=== PATIENT | female | born 1985 | race Caucasian/White ===

== ENCOUNTER 2017-04-18 18:17 | Emergency (ER) | payer OTHER ==
[~2017-04-18] VITALS: Ht 157.5 cm; Wt 79.1 kg
[~2017-04-18 18:17] MED LIST: ASCA500 PO; CYAN10005 PO; MULT-506 PO
[2017-04-18 18:24] VITALS: BP 141/87; PULSE 100; TEMP 36.6; O2SAT 97; Ht 157.5 cm; Wt 79.1 kg
[2017-04-18] MEDS ORDERED: CETI10TA10 PO (18:57)
[2017-04-18] MEDS ORDERED: PEDICHW44 PO (18:57)
[2017-04-18] MEDS ORDERED: CYAN500T13 PO (18:57)
[2017-04-18] MEDS ORDERED: ASCO500T16 PO (18:57)
--- NOTE | 2017-04-18 19:09 | DIAGNOSTIC IMAGING REPORT ---
SACRUM COCCYX MIN 2 VIEWS CLINICAL HISTORY: sacral and coccyx pain COMPARISON STUDY: None FINDINGS: Negative study IMPRESSION: No acute process The above report was generated using voice recognition software. It may contain grammatical, syntax or spelling errors. Electronically signed by: Rober Walton M.D. 04/18/2017 7:08 PM Dictated Date/Time: 04/18/2017 7:06 PM
--- NOTE | 2017-04-18 19:29 | EMERGENCY ROOM VISIT NOTE ---
ED Visit Note First contact with patient: 18:28 I have seen and examined this patient with Judson Duran and generally agree with the treatment plan as discussed. Current/Historical Medications Scheduled Ascorbic Acid (Ascorbic Acid), 1,000 MG PO DAILY Cetirizine Hcl (Zyrtec), 10 MG PO DAILY Cyanocobalamin (Vitamin B12 500MCG), 1,000 MCG PO DAILY Pediatric Multiple Vitamins W/ (Flintstones Plus Iron), 2 TABS PO DAILY Allergies Coded Allergies: Dextromethorphan (Verified Allergy, Intermediate, Rash, 04/18/17) Ethanol (Verified Allergy, Intermediate, Rash, 04/18/17) Pseudoephedrine (Verified Allergy, Intermediate, Rash, 04/18/17) Morphine (Unverified Allergy, Mild, 12/31/11) Prednisone (Verified Adverse Reaction, Severe, Swelling, 04/18/17) Vital Signs Date Time Temp Pulse Resp B/P (MAP) Pulse Ox O2 Delivery O2 Flow Rate FiO2 04/18/17 18:24 36.6 100 20 141/87 97 Room Air Departure Information Referrals Zeina Coy MD (PCP) Patient Instructions [facility]
[2017-04-18] MEDS ORDERED: HYDR-5688 PO (19:35)
--- NOTE | 2017-04-21 14:00 | EMERGENCY ROOM VISIT NOTE ---
ED Visit Note First contact with patient: 18:28 Chief Complaint: Lower back pain. History of Present Illness: Ms. Samaniego is a 31-year-old white female who ambulates into the ED accompanied by her mother complaining of sacrum and coccyx pain. Historically patient denies any previous significant injuries or surgeries to the lumbar, sacrum or coccyx area. She does report a few weeks ago she was having pain at work while flexion of the lumbar spine over but that has subsequently resolved. Patient reports approximately 12 hours ago she was undressing to take a shower and was bending at the waist. She reports an acute onset of sacrum and coccyx pain. Since that time her pain has been constant but has waxed and waned in intensity. She describes her pain as a sharp sensation. She rates her discomfort 9/10. Her pain is nonradiating. Her pain worsens with palpation, when she is sitting on her buttocks and flexion of the lumbar/sacral spine. She has not identified any alleviating factors related to the pain. She has not taken any medications for pain prior to arrival at the hospital. She denies any associated fevers, chills, sweats, skin eruptions, skin color changes , abdominal pain, nausea, vomiting, diarrhea, constipation, black/tarry stools, bloody stools, vaginal bleeding, vaginal discharge, urinary symptoms, hematuria , lower extremity weakness/numbness/tingling. Review of Systems: As noted above in history of present illness. 8 body systems were reviewed and found to be negative as noted above. Past Medical History: Kidney cyst, asthma, learning disabilities, status post gastric bypass. Current Medications: Multivitamins, Zyrtec. Allergies to Medications: Morphine, prednisone, pseudoephedrine, ethanol, dextromethorphan. Social History: Patient is currently employed; she lives with her mom and feels safe in her home environment; she denies tobacco use and admits to alcohol use. Physical Examination: Vital Signs: Date Time Temp Pulse Resp B/P (MAP) Pulse Ox O2 Delivery O2 Flow Rate FiO2 04/18/17 18:24 36.6 100 20 141/87 97 Room Air GENERAL: 31-year-old female in mild to moderate distress due to pain, nontoxic- appearing, afebrile and hemodynamically stable. NEUROLOGICAL: Awake, alert and oriented to person, place and time. Answering questions appropriately and following commands. Normal gait. Good hand eye coordination. No focal motor sensory deficits. SKIN: Warm, dry and pink. No soft tissue eruptions or trauma noted. HEENT: Atraumatic and normocephalic. BACK: No tenderness over the bony cervical, thoracic and lumbar spine. No tenderness throughout the cervical, thoracic and lumbar paraspinous musculature. No muscle spasm. No CVA tenderness. Moderate tenderness over the mid sacrum extending to the lower aspect of the coccyx. I do not appreciate any bony deformity. There is no swelling or erythema in this area. THORAX: Lungs sounds are clear to auscultation and equal bilaterally with symmetrical chest wall. ABDOMEN: Flat, soft and nontender. Positive bowel sounds in all quadrants. No guarding, rigidity or organomegaly. EXTREMITIES: Moves all extremities well on command and with purpose. All distal neurovascular statuses are intact and equal bilaterally. 2+ patellar and Achilles tendon reflexes intact and equal bilaterally. 4/5 muscle strength in flexion, extension, abduction and abduction of the hips, flexion and extension of the knees, plantar flexion and dorsiflexion of the ankles and flexion and extension of all toes. Able to distinguish light sensations through all dermatomes of the toes. Dorsalis pedis and anterior tibialis pulses are intact and equal bilaterally. Capillary refill is brisk. ED Course: Patient is assessed as noted above. Patient's medication list was reviewed. Patient was offered pain medication and refused. Sacrum/Coccyx X-Rays: Was read by myself and the radiologist showing no acute fractures or dislocations. Patient's case was reviewed with Dr. Abreu; we agreed on diagnostic approach, treatment, disposition and plan. Patient mother were educated about today's findings and instructed on her treatment plan; they verbalizes understanding and agreement with this plan. Clinical Impression: Coccydynia. Disposition: Patient discharged home in stable condition accompanied by her mother; prior to departure she was reassessed and subjectively reported she was feeling better and rated her discomfort 4/10. Plan: Comfort measures were discussed with the patient including rest, ice, donut pillow use and a sliding pain medication scale of ibuprofen, acetaminophen and [place]; appropriate narcotic precautions were discussed with the patient and patient's name was checked in the state database and no red flags were noted. Follow-up with family physician if no better in 3-4 days. Return to the ED for worsening/uncontrolled pain, swelling, redness, fevers or any new/concerning symptoms.
== END 2017-04-18 19:59 | disposition home or self-care (01) ==
LOC: C.EDB 18:17 → C.EDD 19:59
DX: M53.3 Sacrococcygeal disorders, not elsewhere classified (principal); N28.1 Cyst of kidney, acquired; J45.909 Unspecified asthma, uncomplicated; Z98.84 Bariatric surgery status

== ENCOUNTER → 2017-05-23 | Outpatient (CLI) | payer OTHER ==
[~2017-05-23] MED LIST changes: -ASCA500 PO; +ASCO500T16 PO; +CETI10TA10 PO; -CYAN10005 PO; +CYAN500T13 PO; +HYDR-5688 PO; -MULT-506 PO; +PEDICHW44 PO
[2017-05-23 16:35] LABS: BASO % 0.3 %; BASO ABS # 0.03 K/uL (0-0.2); COMPLETE YES; EOS % 0.7 %; HEMATOCRIT 39.2 % (37-47); IG% 0.3 %; LYMPH % 27.6 %; LYMPH ABS # 2.59 K/uL (1.2-3.4); MEAN CELL VOLUME 92.5 fL (80-100); MEAN CORPUSCULAR HEMOGLOBIN 31.6 pg (25-34); MEAN CORPUSCULAR HGB CONC 34.2 g/dl (32-36); MEAN PLATELET VOLUME 10.7 fL (7.4-10.4); MONO % 6.4 %; NEUT % 64.7 %; PLATELET COUNT 198 K/uL (130-400); RED BLOOD COUNT 4.24 M/uL (4.2-5.4); WHITE BLOOD COUNT 9.38 K/uL (4.8-10.8)
[2017-05-23 16:35] LABS: URINE APPEARANCE CLOUDY (CLEAR); URINE BILIRUBIN NEG (NEG); URINE COLOR DK YELLOW; URINE EPITHELIAL CELL AUTO >30 /lpf (0-5); URINE NITRITE NEG (NEG); URINE PH 5.5 (4.5-7.5); URINE SPECIFIC GRAVITY 1.021 (1.000-1.030); UROBILINOGEN NEG (NEG)
[2017-05-23 16:36] LABS: MANUAL MICROSCOPIC REQUIRED? NO; REVIEW REQ? YES
[2017-05-23 17:05] LABS: ALT/SGPT 21 U/L (12-78); AST/SGOT 19 U/L (15-37); BLOOD UREA NITROGEN 14 mg/dl (7-18); BUN/CREATININE RATIO 18.2 (10-20); CALCIUM 8.9 mg/dl (8.5-10.1); CARBON DIOXIDE 29 mmol/L (21-32); CHLORIDE 105 mmol/L (98-107); CREATININE 0.74 mg/dl (0.60-1.20); GLUCOSE 87 mg/dl (70-99); POTASSIUM 3.6 mmol/L (3.5-5.1); SODIUM 141 mmol/L (136-145)
[2017-05-23 17:15] LABS: ALB/GLOB RATIO 1.3 (0.9-2); ALKALINE PHOSPHATASE 51 U/L (45-117)
--- NOTE | 2017-06-05 17:37 | CODING QUERY MEDICAL NECESSITY ---
SUPPORTING DIAGNOSIS NEEDED A supporting diagnosis is required for the test/procedure performed on this patient in order for us to be reimbursed by the patient's insurance. Please provide a supporting diagnosis for the following test/procedure listed below next to the test name along with your signature. *If there is no additional diagnosis for this patient that would support the following test/procedure please document that below next to the test/procedure. Test(s)/Procedure(s) that require a supporting diagnosis: * VITAMIN B12 DIAGNOSIS: Provider Signature: Date: Thank you M[facility] [place] [employer] Once completed, please kindly fax back to [phone] For questions please call [phone]
== END | disposition home or self-care (01) ==
LOC: C.LAB1850 15:41
PROVIDERS: ATTEND Family Medicine Adult Medicine
DX: R11.0 Nausea (principal); R63.4 Abnormal weight loss; Z98.84 Bariatric surgery status

== ENCOUNTER 2018-01-12 09:41 | Emergency (ER) | payer OTHER ==
[~2018-01-12] VITALS: Ht 157.5 cm; Wt 76.1 kg
[~2018-01-12 09:41] MED LIST changes: -HYDR-5688 PO
[2018-01-12 09:45] VITALS: TEMP 36.7; Ht 157.5 cm; Wt 76.1 kg
[2018-01-12] MEDS ORDERED: ONDANSETRON INJ 2 MG/ML 2 ML VIAL IV STA (10:13)
[2018-01-12] MEDS ORDERED: KETOROLAC TROMETHAMINE 30 MG/ML VIAL IV STA (10:13)
[2018-01-12 11:09] LABS: BASO % 0.5 %; BASO ABS # 0.03 K/uL (0-0.2); EOS % 0.8 %; EOS ABS # 0.05 K/uL (0-0.5); HEMATOCRIT 39.6 % (37-47); HEMOGLOBIN 13.6 g/dL (12.0-16.0); IG# 0.01 K/uL (0.00-0.02); LYMPH % 30.9 %; MEAN CELL VOLUME 91.5 fL (80-100); MEAN CORPUSCULAR HEMOGLOBIN 31.4 pg (25-34); MEAN CORPUSCULAR HGB CONC 34.3 g/dl (32-36); MEAN PLATELET VOLUME 10.8 fL (7.4-10.4); MONO % 5.9 %; MONO ABS # 0.36 K/uL (0.11-0.59); NEUT % 61.7 %; NEUT ABS # 3.79 K/uL (1.4-6.5); PLATELET COUNT 191 K/uL (130-400); RED CELL DISTRIBUTION WIDTH CV 12.3 % (11.5-14.5); RED CELL DISTRIBUTION WIDTH SD 41.7 fL (36.4-46.3); WHITE BLOOD COUNT 6.14 K/uL (4.8-10.8)
[2018-01-12 11:31] LABS: ALBUMIN 3.9 gm/dl (3.4-5.0); ALT/SGPT 19 U/L (12-78); AST/SGOT 16 U/L (15-37); BLOOD UREA NITROGEN 15 mg/dl (7-18); CALCIUM 8.9 mg/dl (8.5-10.1); CARBON DIOXIDE 29 mmol/L (21-32); CREATININE 0.69 mg/dl (0.60-1.20); GLUCOSE 90 mg/dl (70-99); LIPASE 137 U/L (73-393); SODIUM 138 mmol/L (136-145)
[2018-01-12 11:33] LABS: ALKALINE PHOSPHATASE 53 U/L (45-117); TOTAL PROTEIN 6.7 gm/dl (6.4-8.2)
--- NOTE | 2018-01-12 11:34 | DIAGNOSTIC IMAGING REPORT ---
HAIM CLINICAL HISTORY: ABDOMINAL PAIN/GI COMPARISON STUDY: Abdominal series November 30, 2010. FINDINGS: The bowel gas pattern is normal. Left upper quadrant surgical staple lines are noted from gastric bypass. IMPRESSION: No evidence for a bowel obstruction. Electronically signed by: Jeet Pacheco M.D. 01/12/2018 11:33 AM Dictated Date/Time: 01/12/2018 11:32 AM
--- NOTE | 2018-01-12 11:49 | EMERGENCY ROOM VISIT NOTE ---
History Report prepared by Diana: Doc Murillo Under the Supervision of: Dr. Omar Han M.D. First contact with patient: 09:55 Chief Complaint: NAUSEA Stated Complaint: PAIN RIGHT LOWER BAD BY HIP, BACKACHE, NAUSEA History of Present Illness The patient is a 32 year old white female with a past medical history of PCKD, gastric bypass surgery, and a heart murmur, who presents to the Emergency Room with complaints of waxing and waning pain in her right side that began 10 days ago. The patient describes her pain as a "squeeze" on the right side of her abdomen that she rates as a 5/10 in severity. The family member at bedside noted that her symptoms first started with the onset of her menstrual cycle, so they attributed the pain to cramping. However, her symptoms have persisted even after her period ended. The patient was nauseous this morning but could not vomit. Source of History: patient, family Onset: 10 days ago Position: abdomen Quality: other ("squeeze") Timing: waxes/wanes Associated Symptoms: + nausea, No vomiting Review of Systems See HPI for pertinent positives and negatives. A total of ten systems were reviewed and were otherwise negative. Past Medical & Surgical Hx of PCKD, Gastric Bypass. Family History Heart disease Hypertension Kidney disease Kidney stones Social History Smoking Status: Never Smoker Marital Status: single Housing Status: lives with family Occupation Status: employed Current/Historical Medications Scheduled Cyanocobalamin (Vitamin B12 500MCG), 1,000 MCG PO DAILY Pediatric Multiple Vitamins W/ (Flintstones Plus Iron), 2 TABS PO DAILY Scheduled PRN Cetirizine Hcl (Zyrtec), 10 MG PO DAILY PRN for Allergic Reaction Allergies Coded Allergies: Dextromethorphan (Verified Allergy, Intermediate, Rash, 01/12/18) Ethanol (Verified Allergy, Intermediate, Rash, 01/12/18) Pseudoephedrine (Verified Allergy, Intermediate, Rash, 01/12/18) Morphine (Unverified Allergy, Mild, 01/12/18) Prednisone (Verified Adverse Reaction, Severe, Swelling, 01/12/18) Physical Exam Vital Signs Date Time Temp Pulse Resp B/P (MAP) Pulse Ox O2 Delivery O2 Flow Rate FiO2 01/12/18 11:39 68 16 135/95 99 Room Air 01/12/18 10:59 64 16 140/93 100 Room Air 01/12/18 10:59 58 01/12/18 09:45 36.7 78 18 140/87 100 Room Air Physical Exam GENERAL: Awake, alert, well-appearing, NAD HENT: Normocephalic, atraumatic. There is right eye exotropia. EYES: Normal conjunctiva. Sclera non-icteric. NECK: Supple. No nuchal rigidity. FROM. RESPIRATORY: CTAB, no rhonchi, wheezing, crackles CARDIAC: RRR, no MRG ABDOMEN: Soft, with mild right sided abd discomfort. BS+, no peritoneal signs. Negative obturators, negative psoas. MSK: No chest wall TTP, no LE edema. There is right sided CVA TTP. NEURO: GCS 15, CN 2-12 intact, moves all 4s on command SKIN: No rash or jaundice noted. Medical Decision & Procedures ER Provider Diagnostic Interpretation: Radiology results as stated below per my review and radiologist interpretation: KUB CLINICAL HISTORY: ABDOMINAL PAIN/GI COMPARISON STUDY: Abdominal series November 30, 2010. FINDINGS: The bowel gas pattern is normal. Left upper quadrant surgical staple lines are noted from gastric bypass. IMPRESSION: No evidence for a bowel obstruction. Electronically signed by: Jeet Pacheco M.D. 01/12/2018 11:33 AM Dictated Date/Time: 01/12/2018 11:32 AM Laboratory Results 01/12/18 10:44 Red Blood Count 4.33, Mean Corpuscular Volume 91.5, Mean Corpuscular Hemoglobin 31.4, Mean Corpuscular Hemoglobin Concent 34.3, Mean Platelet Volume 10.8, Neutrophils (%) (Auto) 61.7, Lymphocytes (%) (Auto) 30.9, Monocytes (%) (Auto) 5.9, Eosinophils (%) (Auto) 0.8, Basophils (%) (Auto) 0.5, Neutrophils # (Auto) 3.79, Lymphocytes # (Auto) 1.90, Monocytes # (Auto) 0.36, Eosinophils # (Auto) 0.05, Basophils # (Auto) 0.03 01/12/18 10:44 Test 01/12/18 09:55 01/12/18 10:44 Urine Color YELLOW Urine Appearance CLEAR (CLEAR) Urine pH 6.5 (4.5-7.5) Urine Specific [place] 1.011 (1.000-1.030) Urine Protein NEG (NEG) Urine Glucose (UA) NEG (NEG) Urine Ketones NEG (NEG) Urine Occult Blood NEG (NEG) Urine Nitrite NEG (NEG) Urine Bilirubin NEG (NEG) Urine Urobilinogen NEG (NEG) Urine Leukocyte Esterase SMALL (NEG) Urine WBC (Auto) 1-5 /hpf (0-5) Urine RBC (Auto) 0-4 /hpf (0-4) Urine Hyaline Casts (Auto) 0 /lpf (0-5) Urine Epithelial Cells (Auto) 20-30 /lpf (0-5) Urine Bacteria (Auto) NEG (NEG) Urine Test NEG (NEG) White Blood Count 6.14 K/uL (4.8-10.8) Red Blood Count 4.33 M/uL (4.2-5.4) Hemoglobin 13.6 g/dL (12.0-16.0) Hematocrit 39.6 % (37-47) Mean Corpuscular Volume 91.5 fL (80-100) Mean Corpuscular Hemoglobin 31.4 pg (25-34) Mean Corpuscular Hemoglobin Concent 34.3 g/dl (32-36) Platelet Count 191 K/uL (130-400) Mean Platelet Volume 10.8 fL (7.4-10.4) Neutrophils (%) (Auto) 61.7 % Lymphocytes (%) (Auto) 30.9 % Monocytes (%) (Auto) 5.9 % Eosinophils (%) (Auto) 0.8 % Basophils (%) (Auto) 0.5 % Neutrophils # (Auto) 3.79 K/uL (1.4-6.5) Lymphocytes # (Auto) 1.90 K/uL (1.2-3.4) Monocytes # (Auto) 0.36 K/uL (0.11-0.59) Eosinophils # (Auto) 0.05 K/uL (0-0.5) Basophils # (Auto) 0.03 K/uL (0-0.2) RDW Standard Deviation 41.7 fL (36.4-46.3) RDW Coefficient of Variation 12.3 % (11.5-14.5) Immature Granulocyte % (Auto) 0.2 % Immature Granulocyte # (Auto) 0.01 K/uL (0.00-0.02) Anion Gap 6.0 mmol/L (3-11) Est Creatinine Clear Calc Drug Dose 110.8 ml/min Estimated GFR () 132.6 Estimated GFR (Non- 114.4 BUN/Creatinine Ratio 21.2 (10-20) Calcium Level 8.9 mg/dl (8.5-10.1) Total Bilirubin 0.4 mg/dl (0.2-1) Direct Bilirubin < 0.1 mg/dl (0-0.2) Aspartate Amino Transf (AST/SGOT) 16 U/L (15-37) Alanine Aminotransferase (ALT/SGPT) 19 U/L (12-78) Alkaline Phosphatase 53 U/L (45-117) Total Protein 6.7 gm/dl (6.4-8.2) Albumin 3.9 gm/dl (3.4-5.0) Lipase 137 U/L (73-393) Laboratory results reviewed by me Medications Administered Medications (Trade) Dose Ordered Sig/Jeanna Route Start Time Stop Time Status Last Admin Dose Admin Ondansetron HCl (Zofran Inj) 4 mg NOW STAT IV 01/12/18 10:13 01/12/18 10:15 DC 01/12/18 10:55 4 MG Ketorolac Tromethamine (Toradol Inj) 30 mg NOW STAT IV 01/12/18 10:13 01/12/18 10:15 DC 01/12/18 10:55 30 MG ED Course 0958: The patient was evaluated in room B12B. A complete history and physical exam was performed. 1013: Ordered Toradol 30 mg IV, Zofran 4 mg IV. 1151: I reevaluated the patient. Discussed results and discharge instructions: She verbalized understanding and agreement. The patient is ready for discharge. Medical Decision The patient is a 32 year old white female with a past medical history of PCKD, gastric bypass surgery, and a heart murmur, who presents to the Emergency Room with complaints of waxing and waning pain in her right side that began 10 days ago. Differential diagnosis: Etiologies such as appendicitis, diverticulitis, PUD, biliary pathology, UTI, pancreatitis, obstruction, mesenteric ischemia, aortic pathology, infections, inflammatory bowel disease, renal colic, as well as others were entertained. Patient was seen and evaluated at the bedside. Patient had does have a known history of PCKD and gastric bypass. Patient was complaining of some right- sided flank pain that has been ongoing for approximately 10 days. On exam the patient is a nonfocal exam. Questionable CVA TTP but the patient does not seem to much discomfort. Patient has a fairly benign abdominal exam with only some mild right-sided discomfort. Patient did blood work completed, KUB, and the patient was given medications for symptom control. Patient's KUB shows a nonobstructive bowel gas pattern. Patient's blood work is fairly unremarkable. Patient does not have an elevated white blood cell count. Kidney function normal. LFTs lipase within normal limits. UA is negative for blood. Does have leuks but lots of epithelial is likely contaminant as the patient does not have any symptoms. Upon reassessment the patient is feeling improved. I do not believe the patient requires further evaluation or treatment at this time. Patient was given strict follow-up, discharge, and return precautions. All questions were answered. Patient was deemed suitable for outpatient follow-up at this time. Patient agreed with the plan of care and was safely discharged home. Medication Reconcilliation Current Medication List: was personally reviewed by me Blood Pressure Screening Patient's blood pressure: Elevated blood pressure Blood pressure disposition: Elevated BP felt to be situational Impression Primary Impression: Flank pain Scribe Attestation The scribe's documentation has been prepared under my direction and personally reviewed by me in its entirety. I confirm that the note above accurately reflects all work, treatment, procedures, and medical decision making performed by me. Departure Information Dispostion Home / Self-Care Referrals Zeina Coy MD (PCP) Patient Instructions ED Flank Pain Uncertain Cause, [facility] Additional Instructions Today Please return to the emergency department if you have worsening or recurrent symptoms not amenable to at-home treatment. Please call for a follow- up appointment with her primary care physician. Please take your medications as prescribed. If you have other concerns and/or complaints please feel free to also call your primary care physician's office or return the ED for further evaluation, management, and treatment. Take your medications as prescribed. You have been examined and treated today on an emergency basis only. This is not a substitute for, or an effort to provide, complete comprehensive medical care. It is impossible to recognize and treat all injuries or illnesses in a single emergency department visit. It is therefore important that you follow up closely with [facility], your PCP, and/or your specialist(s). Call as soon as possible for an appointment. Thank you for your time and consideration. I look forward to speaking with you again soon. Please don't hesitate to call us if you have any questions.
[2018-01-12 12:51] VITALS: BP 124/89; PULSE 100; O2SAT 100
== END 2018-01-12 12:52 | disposition home or self-care (01) ==
LOC: C.EDB 09:44
DX: R10.9 Unspecified abdominal pain (principal); M54.5 Low back pain; R11.0 Nausea; Z98.84 Bariatric surgery status; Z79.899 Other long term (current) drug therapy; Z88.8 Allergy status to other drugs, medicaments and biological substances